=== PATIENT | female | born 1995 | race Caucasian/White ===

== ENCOUNTER 2017-04-17 05:26 | Emergency (ER) | payer OTHER ==
[~2017-04-17] VITALS: Ht 170.2 cm; Wt 55.8 kg
[2017-04-17 05:51] VITALS: BP_SYST 117
[2017-04-17 06:09] VITALS: BP_SYST 117
== END 2017-04-17 06:09 ==
LOC: SED 05:26
DX: Z02.89 Encounter for other administrative examinations (principal)